=== PATIENT | male | born 1935 | race Caucasian/White ===

== ENCOUNTER → 2019-03-21 | Outpatient (CLI) | payer MEDICARE ==
[~2019-03-21] MED LIST: BISA10S PR; Clonazepam0.25 MG PO; DOCSEN PO; HYDR1TAB94 PO; LISI20 PO; PROSTATE HEALT1 EACH PO; Percocet 5-3251 EACH PO; TAMS.4ER PO; [UNRECOGNIZED DRUG - OTHER]
[2019-03-21 15:31] LABS: Protein, Urine Random 286.5 mg/dL (0.0-11.9)
== END | disposition home or self-care (01) ==
LOC: LAB 14:35 → LAB SHORT 14:35
PROVIDERS: Internal Medicine
DX: N18.3 Chronic kidney disease, stage 3 (moderate) (principal)
CPT/HCPCS: 82570; 84156

== ENCOUNTER → 2019-04-16 | Outpatient (CLI) | payer MEDICARE ==
[2019-04-16 13:42] LABS: Creatinine Urine 50.7 mg/dL (27.00-270.00); Protein, Urine Quantitative 115.9 mg/dL (0.0-11.9)
== END | disposition home or self-care (01) ==
LOC: LAB 05:40 → LAB SHORT 05:40
PROVIDERS: Internal Medicine
DX: N18.3 Chronic kidney disease, stage 3 (moderate) (principal)
CPT/HCPCS: 81050; 82570; 84156

== ENCOUNTER 2021-04-12 09:52 | Emergency (ER) | payer MEDICARE ==
[~2021-04-12] VITALS: Ht 185.4 cm; Wt 99.8 kg
[2021-04-12] MEDS ORDERED: HYDCHL25 PO (10:52)
[2021-04-12] MEDS ORDERED: DOXA4 PO (10:53)
[2021-04-12] MEDS ORDERED: HYDR1TAB94 PO (11:57)
== END 2021-04-12 12:10 | disposition home or self-care (01) ==
LOC: ER 09:52
DX: M25.551 Pain in right hip (principal); G89.29 Other chronic pain; I10 Essential (primary) hypertension; F17.210 Nicotine dependence, cigarettes, uncomplicated; Z79.899 Other long term (current) drug therapy
CPT/HCPCS: 73502; 99283-25

== ENCOUNTER → 2021-10-01 | Outpatient (CLI) | payer MEDICARE ==
[~2021-10-01] MED LIST changes: +DOXA4 PO; +HYDCHL25 PO
== END | disposition home or self-care (01) ==
LOC: LAB SHORT 18:16
DX: L02.611 Cutaneous abscess of right foot (principal); L03.031 Cellulitis of right toe
CPT/HCPCS: 87070; 87077; 87147; 87186; 87205